=== PATIENT | male | born 1980 | race Two or more races ===

== ENCOUNTER 2025-05-09 07:50 | Inpatient (IN) | payer MEDICAID ==
[~2025-05-09] VITALS: Ht 165.1 cm; Wt 79.4 kg
[2025-05-09 07:59] VITALS: TEMP 98.4
[2025-05-09 08:30] LABS: PLATELET COUNT (AUTO) 248 K/uL (150-450); RED BLOOD CELL COUNT(AUTO) 4.84 MIL/uL (4.5-6.0); RED CELL DISTRIBUTION WIDTH 13.6 % (11.5-15.0); WHITE BLOOD COUNT (AUTO) 12.7 K/uL (4.3-11.0)
[2025-05-09] MEDS ORDERED: MORPHINE SULFATE INJ 4 MG/ML DISP.SYRIN ONE (08:31)
[2025-05-09] MEDS ORDERED: ONDANSETRON HCL/PF 4 MG/2 ML VIAL ONE (08:31)
[2025-05-09] MEDS: IV NS 0.9% 1,000 ML BAG IV ONE ×2 (08:36→09:06)
[2025-05-09 08:38] LABS: CALCIUM, SERUM 9.1 mg/dL (8.5-10.1); CREATININE 0.9 mg/dL (0.6-1.3); SODIUM SERUM 140.0 mmol/L (136-145); UREA NITROGEN, BLOOD 13.0 mg/dL (7-18)
[2025-05-09] MEDS: MORPHINE SULFATE INJ 2 MG/ML DISP.SYRIN IV ONE (08:38)
[2025-05-09] MEDS: ONDANSETRON HCL/PF 4 MG/2 ML VIAL IVP ONE (08:38)
[2025-05-09 08:43] LABS: ASPARTATE AMINOTRANSFERASE 23.0 U/L (15-37); TOTAL PROTEIN, SERUM 7.5 g/dL (6.4-8.2)
[2025-05-09] MEDS: PIPERACILLIN /TAZOBACTAM 3.375 G in IV D5W 50 ML IV ONE (09:06)
[2025-05-09] MEDS ORDERED: HYDROMORPHONE 1 MG/1 ML DISP.SYRIN ONE (09:21)
[2025-05-09] MEDS: HYDROMORPHONE 1 MG/1 ML DISP.SYRIN IV ONE (09:27)
[2025-05-09 10:06] VITALS: BP 155/92; O2SAT 99
[2025-05-09] MEDS ORDERED: IV NS 0.9% 1,000 ML IV PRN (11:30)
[2025-05-09] MEDS ORDERED: MAGNESIUM HYDROXIDE 30 ML UDC PO PRN (11:30)
[2025-05-09] MEDS ORDERED: ONDANSETRON HCL/PF 4 MG/2 ML VIAL IVP PRN (11:30)
[2025-05-09] MEDS ORDERED: Z GUARD REMEDY 4 OZ OINT TP PRN (11:30)
[2025-05-09] MEDS ORDERED: ACETAMINOPHEN 325 MG TABLET PO PRN (11:30)
[2025-05-09] MEDS ORDERED: DOSING PER PHARMACY-ZOSYN IV 1 EA EA XX PRN (11:30)
[2025-05-09] MEDS ORDERED: MAG HYDROX/AL HYDROX/SIMETH 30 ML UDC PO PRN (11:30)
[2025-05-09] MEDS: HYDROMORPHONE 1 MG/1 ML DISP.SYRIN IV PRN (11:40)
[2025-05-09] MEDS ORDERED: ZOSYN IVPB 3.375 G in IV D5W 50ml IV SCH (15:00)
[2025-05-10] MEDS ORDERED: PANTOPRAZOLE 40 MG VIAL IV SCH (09:00)
== END 2025-05-09 12:10 | disposition left against medical advice (07) ==
LOC: ER 07:59 → MED 11:16
PROVIDERS: ADMIT Internal Medicine; ATTEND Internal Medicine
DX: K83.8 Other specified diseases of biliary tract (principal); D72.829 Elevated white blood cell count, unspecified; K81.9 Cholecystitis, unspecified; E78.00 Pure hypercholesterolemia, unspecified; K82.8 Other specified diseases of gallbladder; Z53.29 Procedure and treatment not carried out because of patient's decision for other reasons; E80.6 Other disorders of bilirubin metabolism
CPT/HCPCS: 36415; 76705-TC; 80048-TC; 80076-TC; 83605-TC; 83690-TC; 85025-TC; 87040-TC; 87081-TC; G0378; J1171; J2270; J2405; J2543; J7030; J7040; J7060